=== PATIENT | male | born 2000 | race Caucasian/White ===

== ENCOUNTER 2018-10-31 20:08 | Emergency (ER) | payer BC ==
[2018-10-31] MEDS ORDERED: NS 1,000 ML IV ONE (20:26)
[2018-10-31] MEDS ORDERED: ONDANSETRON 4 MG/2 ML VIAL IVP ONE (20:26)
[2018-10-31] MEDS ORDERED: KETOROLAC 30 MG/1 ML SDV IVP ONE (20:26)
--- NOTE | 2018-10-31 20:26 | EDPHY ---
H & P Stated Complaint: l flank pain x 45 min Time Seen by Provider: 10/31/18 20:22 HPI/ROS: HPI: This is a 18-year-old male who presents with Chief Complaint: Left flank pain times 45 min Location: Left upper quadrant, left flank Quality: Sharp, constant pain Duration: 45 min Signs and Symptoms: no fever, no nausea, no vomiting, no hematemesis, no blood in stool, no abdominal bloating, no diarrhea, no back pain, no urinary symptoms , no testicular/groin pain, no indigestion, no chest pain, no shortness of breath Timing: Rapid onset, constant Severity: 7/10 Context: Patient is student at [employer], has a history of depression and GERD, presents with sudden onset of left upper quadrant and left leg pain that started approximately 45 min prior to arrival and has remained constant. It is 7/10 intensity. Patient reports that he was sitting studying when the pain started. He has bowel movements every day and had a bowel movement this morning. No history of kidney stones. Patient has no recent long distance travel and denies shortness of breath, chest pain, palpitations. Patient became concerned as he has never had "such in intense pain before." Denies fever, nausea, vomiting, diarrhea, back pain. No recent heavy lifting or strenuous exercise. Reports last meal was [employer] at noon. 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 Modifying Factors: None Comment: ROS: A comprehensive 10 system review of systems is otherwise negative aside from elements mentioned in the history of present illness. MEDICAL/SURGICAL/SOCIAL HISTORY: Medical history: Depression, GERD Surgical history: Denies Social history: Student at [employer]. Family history noncontributory. CONSTITUTIONAL: Overweight, nontoxic-appearing, polite and cooperative, adult white male, awake and alert, no obvious distress HEENT: Atraumatic and normocephalic, PERRL, EOMI. Nares patent; no rhinorrhea; no nasal mucosal edema. Tympanic membranes clear. Oropharynx clear, no exudate and moist pink mucosa. Airway patent. No lymphadenopathy. No meningismus. Cardiovascular: Normal S1/S2, mild tachycardia, regular rhythm, without murmur rub or gallop. PULMONARY/CHEST: Symmetrical and nontender. Clear to auscultation bilaterally. Good air movement. No accessory muscle usage. ABDOMEN: Soft, obesely rounded, left upper quadrant moderate tenderness, left flank moderate tenderness,, no rebound, no guarding, no peritoneal signs, no masses or organomegaly. No CVAT. Bowel sounds heard x4 quadrants. EXTREMITIES: 2/2 pulses, strength 5/5, no deformities, no clubbing, no cyanosis or edema. NEUROLOGICAL: no focal neuro deficits. GCS 15. SKIN: Warm and dry, no erythema. no rash. Good capillary refill. Source: Patient Exam Limitations: No limitations - Personal History Current Tetanus Diphtheria and Acellular Pertussis (TDAP): Yes - Medical/Surgical History Hx Asthma: No Hx Chronic Respiratory Disease: No Hx Diabetes: No Hx Cardiac Disease: No Hx Renal Disease: No Hx Cirrhosis: No Hx Alcoholism: No Hx HIV/AIDS: No Hx Splenectomy or Spleen Trauma: No Other PMH: depression - Social History Smoking Status: Never smoked Constitutional: Initial Vital Signs Temperature (C) 36.7 C 10/31/18 20:17 Heart Rate 108 H 10/31/18 20:17 Respiratory Rate 18 10/31/18 20:17 Blood Pressure 143/76 H 10/31/18 20:17 O2 Sat (%) 94 10/31/18 20:17 O2 Delivery Mode Room Air Allergies/Adverse Reactions: No Known Allergies Allergy (Verified 10/31/18 20:22) Home Medications: Medication Instructions Recorded Prilosec 10/31/18 Wellbutrin Sr 10/31/18 Medical Decision Making - Diagnostics Imaging Results: Imaging Impressions Abdomen/Pelvis CT 10/31/18 20:26 Impression: CT of the abdomen and pelvis negative for acute localizing features. Negative for nephrolithiasis or obstructive uropathy. Results called to Sonja GAO on 10/31/2018 at 21:03. ED Course/Re-evaluation: Vital signs reviewed and show mild tachycardia IV access, laboratory studies, urinalysis, CT abdomen pelvis scan without contrast ordered Given 1 L normal saline, IV morphine, IV Toradol, IV Zofran 2056: Laboratory studies reviewed. WBC 13 K, creatinine 1.1. No signs of anemia/platelet dysfunction/SARAHY/elevated LFTs/electrolyte imbalance/ pancreatitis. 2104: Called by radiologist, Dr. Cristina, who reports that CT abdomen and pelvis scan is unremarkable. Urinalysis is unremarkable. Suspect this is related to nonobstructive bowel gas pattern, poor eating habits , poor posture. Patient advises that he has Gas-X, MiraLax, GERD medication at home but he has not been taking it. Tachycardia resolved at discharge. This patient was seen under the supervision of my secondary supervising physician. I evaluated and cared for this patient with attending. Differential Diagnosis: Flank pain including but not limited to musculoskeletal causes, kidney stone, pyelonephritis, shingles, and intra-abdominal causes such as diverticulitis and appendicitis. - Data Points Laboratory Results: Laboratory Results 10/31/18 20:24 10/31/18 20:24 10/31/18 10/31/18 10/31/18 20:24 20:24 20:16 WBC 12.49 10^3/uL H 10^3/uL (3.80-9.50) RBC 5.45 10^6/uL 10^6/uL (4.40-6.38) Hgb 16.2 g/dL g/dL (13.7-17.5) Hct 46.6 % % (40.0-51.0) MCV 85.5 fL fL (81.5-99.8) MCH 29.7 pg pg (27.9-34.1) MCHC 34.8 g/dL g/dL (32.4-36.7) RDW 12.7 % % (11.5-15.2) Plt Count 346 10^3/uL 10^3/uL (150-400) MPV 9.4 fL fL (8.7-11.7) Neut % (Auto) 65.7 % % (39.3-74.2) Lymph % (Auto) 23.3 % % (15.0-45.0) [place] % (Auto) 8.2 % % (4.5-13.0) Eos % (Auto) 1.4 % % (0.6-7.6) Baso % (Auto) 0.5 % % (0.3-1.7) Nucleat RBC Rel Count 0.0 % % (0.0-0.2) Absolute Neuts (auto) 8.21 10^3/uL H 10^3/uL (1.70-6.50) Absolute Lymphs (auto) 2.91 10^3/uL 10^3/uL (1.00-3.00) Absolute Monos (auto) 1.03 10^3/uL H 10^3/uL (0.30-0.80) Absolute Eos (auto) 0.17 10^3/uL 10^3/uL (0.03-0.40) Absolute Basos (auto) 0.06 10^3/uL 10^3/uL (0.02-0.10) Absolute Nucleated RBC 0.00 10^3/uL 10^3/uL (0-0.01) Immature Gran % 0.9 % % (0.0-1.1) Immature Gran # 0.11 10^3/uL H 10^3/uL (0.00-0.10) Sodium 139 mEq/L mEq/L (135-145) Potassium 3.8 mEq/L mEq/L (3.5-5.2) Chloride 104 mEq/L mEq/L (97-110) Carbon Dioxide 21 mEq/l L mEq/l (22-31) Anion Gap 14 mEq/L mEq/L (6-14) BUN 10 mg/dL mg/dL (7-23) Creatinine 1.1 mg/dL mg/dL (0.7-1.3) Estimated GFR > 60 Glucose 104 mg/dL H mg/dL (70-100) Calcium 9.6 mg/dL mg/dL (8.5-10.4) Total Bilirubin 0.4 mg/dL mg/dL (0.1-1.4) Conjugated Bilirubin 0.2 mg/dL mg/dL (0.0-0.5) Unconjugated Bilirubin 0.2 mg/dL mg/dL (0.0-1.1) AST 24 IU/L IU/L (17-59) ALT 26 IU/L IU/L (21-72) Alkaline Phosphatase 113 IU/L IU/L (38-126) Total Protein 7.7 g/dL g/dL (6.3-8.2) Albumin 4.8 g/dL g/dL (3.5-5.0) Lipase 48 IU/L IU/L (23-300) Urine Color YELLOW Urine Appearance CLEAR Urine pH 6.0 (5.0-7.5) Ur Specific [place] 1.016 (1.002-1.030) Urine Protein NEGATIVE (NEGATIVE) Urine Ketones NEGATIVE (NEGATIVE) Urine Blood NEGATIVE (NEGATIVE) Urine Nitrate NEGATIVE (NEGATIVE) Urine Bilirubin NEGATIVE (NEGATIVE) Urine Urobilinogen NEGATIVE EU EU (0.2-1.0) Ur Leukocyte Esterase NEGATIVE (NEGATIVE) Urine Glucose NEGATIVE (NEGATIVE) Medications Given: Discontinued Medications Sodium Chloride (Ns) 1,000 mls @ 0 mls/hr IV EDNOW ONE; Wide Open PRN Reason: Protocol Stop: 10/31/18 20:27 Last Admin: 10/31/18 20:50 Dose: 1,000 mls Ketorolac Tromethamine (Toradol) 30 mg IVP EDNOW ONE Stop: 10/31/18 20:27 Last Admin: 10/31/18 20:51 Dose: 30 mg Morphine Sulfate (Morphine) 6 mg IVP EDNOW ONE Stop: 10/31/18 20:27 Last Admin: 10/31/18 20:51 Dose: 6 mg Ondansetron HCl (Zofran) 4 mg IVP EDNOW ONE Stop: 10/31/18 20:27 Last Admin: 10/31/18 20:49 Dose: 4 mg Departure - Departure Disposition: Home, Routine, Self-Care Clinical Impression: Abdominal gas pain GERD (gastroesophageal reflux disease) Qualifiers: Esophagitis presence: esophagitis presence not specified Qualified Code(s): K21.9 - Gastro-esophageal reflux disease without esophagitis Condition: Good Instructions: Simethicone (By mouth), Diet for Stomach Ulcers and Gastritis (ED ), Gastroesophageal Reflux Disease (ED), Gas and Bloating (ED) Additional Instructions: Consume a minimum of 8-10 glasses of water or electrolyte fluid replacement drinks that include Gatorade, Powerade, Pedialyte. Eat a bland diet for the next 48 hours and then slowly advance as tolerated. Take [id number] Gas-X or simethicone as needed for abdominal gas pain. Take MiraLax daily as needed for constipation. Take [id number] Zantac or Pepcid or Nexium as needed for indigestion/ reflux. Referrals: FARHAT ANTONIO [Other] - As per Instructions
[2018-10-31 20:39] LABS: PLATELET COUNT 346 10^3/uL (150-400)
[2018-10-31 21:18] VITALS: BP 123/83
== END 2018-10-31 21:34 | disposition home or self-care (01) ==
DX: K21.9 Gastro-esophageal reflux disease without esophagitis (principal); E86.9 Volume depletion, unspecified
CPT/HCPCS: 96374; J1885; J2270; J2405